=== PATIENT | female | born 1940 | race Two or more races ===

== ENCOUNTER 2025-07-23 09:48 | Emergency (ER) | payer OTHER ==
[~2025-07-23] VITALS: Ht 154.9 cm; Wt 54.4 kg
[2025-07-23] MEDS ORDERED: ATORVASTATIN CA10 MG PO (10:48)
[2025-07-23] MEDS ORDERED: MOXIFLOXACIN3 ML OP (10:49)
[2025-07-23] MEDS ORDERED: REPATHA SU140 MG/1 M SQ (10:50)
[2025-07-23] MEDS ORDERED: LISINOPRIL2.5 MG PO (10:51)
[2025-07-23] MEDS ORDERED: KAPSPARGO SPRIN25 MG PO (10:52)
[2025-07-23] MEDS ORDERED: LEVO-T50 MCG PO (10:53)
[2025-07-23] MEDS ORDERED: ACETAMINOPHEN 500 MG GEL..CAP PO ONE ×2 (11:15→12:32)
[2025-07-23] MEDS ORDERED: DEXAMETHASONE SODIUM PHOSPHATE 4 MG/ML VIAL IM ONE (11:15)
[2025-07-23] MEDS ORDERED: DEXAMETHASONE SODIUM PHOSPHATE 4 MG/ML VIAL ONE (12:32)
== END 2025-07-23 15:00 | disposition home or self-care (01) ==
LOC: ER 09:48
DX: S01.412A Laceration without foreign body of left cheek and temporomandibular area, initial encounter (principal); S80.02XA Contusion of left knee, initial encounter; W18.39XA Other fall on same level, initial encounter; Y93.89 Activity, other specified; Y92.89 Other specified places as the place of occurrence of the external cause; Y99.9 Unspecified external cause status; I10 Essential (primary) hypertension; E03.9 Hypothyroidism, unspecified
CPT/HCPCS: 70160; 73590; 99284; J1100